=== PATIENT | female | born 1950 | race Caucasian/White ===

== ENCOUNTER 2021-12-17 01:55 | Emergency (ER) | payer MEDICARE, BC ==
[~2021-12-17] VITALS: Ht 160 cm; Wt 53.5 kg
[2021-12-17] MEDS ORDERED: OXYCODONE/APAP 5-325 MG TABLET PO ONE (03:15)
[2021-12-17] MEDS ORDERED: OXYCODONE/APAP 5-325 MG TABLET ONE (03:18)
[2021-12-17] MEDS ORDERED: OXYC-128 PO (04:06)
--- NOTE | 2021-12-17 04:18 | NUR ---
Patient discharged to home in stable condition. Written and verbal after care instructions given. Patient verbalizes understanding of instructions. Stressed follow up or return to ER for worsening s/s. Patient is a/ox4, NAD noted. Patient is accompanied by relative
[2021-12-17 04:29] VITALS: BP 123/74
== END 2021-12-17 04:20 | disposition home or self-care (01) ==
LOC: ER 02:04
DX: S93.402A Sprain of unspecified ligament of left ankle, initial encounter (principal); W18.49XA Other slipping, tripping and stumbling without falling, initial encounter; Y92.89 Other specified places as the place of occurrence of the external cause; M85.872 Other specified disorders of bone density and structure, left ankle and foot
CPT/HCPCS: 73630; A4663